=== PATIENT | female | born 1950 | race Caucasian/White ===

== ENCOUNTER 2017-02-03 06:09 | Inpatient (IN) ==
--- NOTE | 2017-02-02 15:19 | Discharge Summary ---
<Alem Shirley E - Last Filed: 02/02/17 15:30> Date of Encounter: 02/02/17 - Discharge Diagnosis (1) Rotator cuff tear arthropathy of right shoulder Priority: Primary Status: Chronic (2) Chronic pain Priority: Secondary Status: Chronic Comments: Plan for patient to continue Noro 10/325mg four times per day as needed for pain. Qualifiers: Chronic pain type: chronic pain syndrome Qualified Code(s): G89.4 - Chronic pain syndrome (3) Chronic kidney disease (CKD) Priority: Secondary Status: Chronic Qualifiers: Chronic kidney disease stage: unspecified stage Qualified Code(s): N18.9 - Chronic kidney disease, unspecified (4) Hypertension Priority: Secondary Status: Chronic Qualifiers: Hypertension type: unspecified Qualified Code(s): I10 - Essential (primary ) hypertension (5) Hyperlipidemia Priority: Secondary Status: Chronic Qualifiers: Hyperlipidemia type: unspecified Qualified Code(s): E78.5 - Hyperlipidemia , unspecified (6) COPD (chronic obstructive pulmonary disease) Priority: Secondary Status: Chronic Qualifiers: COPD type: unspecified COPD Qualified Code(s): J44.9 - Chronic obstructive pulmonary disease, unspecified (7) Smoking Priority: Secondary Status: Chronic (8) GERD (gastroesophageal reflux disease) Priority: Secondary Status: Chronic (9) Hypothyroidism Priority: Secondary Status: Chronic (10) BMI 36.0-36.9,adult Priority: Secondary Status: Chronic - Discharge Medications Home Medications: Albuterol Sulfate [Ventolin Hfa] 18 gm IH Q4H PRN 09/16/16 [History] Atorvastatin Calcium [Lipitor] 80 mg PO DAILY 09/16/16 [History] Bumetanide [Bumex] 1 mg PO DAILY 09/16/16 [History] Cholecalciferol (Vitamin D3) [Vitamin D3] 2,000 unit PO DAILY 09/16/16 [History] Gabapentin [Neurontin] 300 mg PO TID 09/16/16 [History] HYDROcodone/Acet 10/325 mg [[place] 10-325 mg] 1 tab PO QID PRN 09/16/16 [History] Levothyroxine [Synthroid] 88 mcg PO DAILY 09/16/16 [History] Multivitamin [Multi-Day Vitamins] 1 each PO DAILY 09/16/16 [History] Omeprazole [PriLOSEC] 40 mg PO DAILY 09/16/16 [History] Ranitidine HCl [Zantac] 150 mg PO BID 09/16/16 [History] Losartan/HCTZ [Hyzaar 50-12.5 Tablet] 1 each PO DAILY 02/03/17 [History] Allergies/Adverse Reactions: Allergies acetaminophen [From Percocet] Adverse Reaction (Verified 02/03/17 07:36) Itching Oxycodone [From Percocet] Adverse Reaction (Verified 02/03/17 07:36) Itching Primary care physician: Bernie Wooten CNP - Patient Status Disposition: Home, Self-Care Condition: Good - Discharge Instructions Follow Up With: Bernie Wooten CNP [Primary Care Provider] - - Hospital Course Hospital course: Ms. Mendoza is a 66 year old female - Time Spent with Patient Total time spent providing and/or coordinating discharge services: - VTE Documentation of Mechanical Device: Venous foot pump, device <Salazar Butt - Last Filed: 02/04/17 06:37> Date of Encounter: 02/04/17 Time of Encounter: 06:37 - Discharge Diagnosis (1) Rotator cuff tear arthropathy of right shoulder Priority: Primary Status: Chronic (2) Chronic kidney disease (CKD) Priority: Secondary Status: Chronic Qualifiers: Chronic kidney disease stage: unspecified stage Qualified Code(s): N18.9 - Chronic kidney disease, unspecified (3) Hypertension Priority: Secondary Status: Chronic Qualifiers: Hypertension type: unspecified Qualified Code(s): I10 - Essential (primary ) hypertension (4) Hyperlipidemia Priority: Secondary Status: Chronic Qualifiers: Hyperlipidemia type: unspecified Qualified Code(s): E78.5 - Hyperlipidemia , unspecified (5) COPD (chronic obstructive pulmonary disease) Priority: Secondary Status: Chronic Qualifiers: COPD type: unspecified COPD Qualified Code(s): J44.9 - Chronic obstructive pulmonary disease, unspecified (6) Smoking Priority: Secondary Status: Chronic (7) GERD (gastroesophageal reflux disease) Priority: Secondary Status: Chronic Qualifiers: Esophagitis presence: esophagitis presence not specified Qualified Code(s) : K21.9 - Gastro-esophageal reflux disease without esophagitis (8) Hypothyroidism Priority: Secondary Status: Chronic Qualifiers: Hypothyroidism type: unspecified Qualified Code(s): E03.9 - Hypothyroidism , unspecified (9) BMI 36.0-36.9,adult Priority: Secondary Status: Chronic (10) Chronic pain Priority: Secondary Status: Chronic Qualifiers: Chronic pain type: chronic pain syndrome Qualified Code(s): G89.4 - Chronic pain syndrome Primary care physician: Bernie Wooten CNP - Patient Status Overall status at discharge: patient is progressing back to baseline - Hospital Course Hospital course: Ms. Mendoza is a 66 year old female Status post right total shoulder.The patient had an uneventful postoperative course. They received antibiotics and physical therapy and were discharged in stable condition. There will follow-up in the office in 2 weeks. - Time Spent with Patient Total time spent providing and/or coordinating discharge services:
[2017-02-03] MEDS ORDERED: Albuterol 2.5 MG/3 ML NEBULIZER ONE (06:46)
[2017-02-03] MEDS ORDERED: Albuterol 2.5 MG/3 ML NEBULIZER IH ONE (06:49)
[2017-02-03] MEDS ORDERED: CeFAZolin Pre 2,000 MG/100 ML 2,000 MG/100 ML BAG IVPB ONE (06:49)
--- NOTE | 2017-02-03 06:50 | History & Physical Report ---
Date of Encounter: 02/03/17 Time of Encounter: 06:49 24 Hour HP Update - Instructions Instructions: If the History and Physical is less than 30 days old and was completed prior to A.M. admission and or procedure and has NOT been updated on calendar day of procedure please complete this update prior to performing procedure. - Update Patient reports changes in Medical Condition: No Changes in examination, assessment, or condition: No Changes in Medication: No Preop tests/diagnostics Reviewed: Yes Surgery Remains Indicated: Yes Consent for Planned Operative Procedure(s) Verified: Yes - Pre-Operative Checklist Preoperative Checklist Indicated: No Prophylactic Antibiotic Ordered: Yes Is VTE Prophylaxis Indicated?: Yes
[2017-02-03] MEDS ORDERED: *HR* Succinylcholine 200 MG/10 ML VIAL IVP ONE (06:54)
[2017-02-03] MEDS ORDERED: *HR* Midazolam HCl 2 MG/2 ML VIAL ONE (06:54)
[2017-02-03] MEDS ORDERED: *HR* FentaNYL (PF) 100 MCG/2 ML VIAL ONE (06:54)
[2017-02-03] MEDS ORDERED: Lidocaine -MPF 2% 2 ML VIAL ONE (06:54)
[2017-02-03] MEDS ORDERED: *HR* Propofol 200 MG/20 ML VIAL IVP ONE (06:54)
[2017-02-03] MEDS ORDERED: Ondansetron 4 MG/2 ML VIAL ONE (06:54)
[2017-02-03] MEDS ORDERED: Ringers Solution, Lactated 1,000 ML IVC SCH ×2 (07:00→09:31)
--- NOTE | 2017-02-03 07:06 | Anesthesia Evaluation PreOp ---
Date of Encounter: 02/03/17 Time of Encounter: 07:03 - Past History Planned Operation: Right Total Shoulder Cardiac History: HTN, Hyperlipidemia Pulmonary History: Smoker (52 years), COPD TIG WELDER History: Denies Any Significant HX Other Medical History: Renal (CKD stage 3), Thyroid, GERD Anesthesia History: No Prior Anesthetic Complications, Past Anesthesia Alcohol Use: occasionally Drug use: none Medications and Allergies Albuterol Sulfate [Ventolin Hfa] 18 gm IH Q4H PRN 09/16/16 [History] Atorvastatin Calcium [Lipitor] 80 mg PO DAILY 09/16/16 [History] Bumetanide [Bumex] 1 mg PO DAILY 09/16/16 [History] Cholecalciferol (Vitamin D3) [Vitamin D] 2,000 unit PO DAILY 09/16/16 [History] Gabapentin [Neurontin] 300 mg PO TID 09/16/16 [History] HYDROcodone/Acet 10/325 mg [[place] 10-325 mg] 1 tab PO QID PRN 09/16/16 [History] Levothyroxine [Synthroid] 88 mcg PO DAILY 09/16/16 [History] Lisinopril/Hydrochlorothiazide [Zestoretic 10-12.5 mg Tablet] 1 each PO DAILY [History] Multivitamin [Multi-Day Vitamins] 1 each PO DAILY 09/16/16 [History] Omeprazole [PriLOSEC] 40 mg PO DAILY 09/16/16 [History] Promethazine/Dextromethorphan [Promethazine-Dm Syrup] 5 ml PO Q4-6H PRN #120 syrup 09/16/16 [Rx] Ranitidine HCl [Zantac] 150 mg PO BID 09/16/16 [History] predniSONE [PredniSONE] 20 mg PO DAILY #15 tablet 09/16/16 [Rx] Allergies acetaminophen [From Percocet] Allergy (Verified 09/16/16 14:21) Itching Oxycodone [From Percocet] Allergy (Verified 09/16/16 14:21) Itching - Meds/Allergy Pre-op Review Medications Reviewed: Yes Allergies Reviewed: Yes Beta Blockers on Current Med List: No Anesthesia Results - Labs Laboratory Tests 01/24/17 01/31/17 01/31/17 14:10 13:28 13:28 WBC 8.2 Hgb 13.0 Hct 38.0 Plt Count 319 PT 10.6 INR 1.0 APTT 28.4 Sodium 140 Potassium 3.3 L BUN 12 Creatinine 1.17 H - Imaging EKG: report reviewed (09/11/2016 SR, leftward axis, IRBBB) Additional studies: 09/30/2016 Echo LVEF 65% moderate LV diastolic dysfunction no significant valvular dysfunction unable to estimate RVSP due to lack of adequate TR jet 10/19/2012 Stress Impression: * Perfusion imaging was negative for ischemia or infarct. * Pharmacologic ECG was negative for ischemia at the level of heart rate achieved. * Patient had chest pain with stress. This is of equivocal clinical signficance during a pharmacologic stress. * Normal hemodynamic response. * No arrhythmias noted with stress. * Gated EF >70%. Anesthesia Exam O2 Sat Height 1.65 m Height 1.65 m Height 1.65 m Weight 95.254 kg Weight 95.254 kg Weight 95.254 kg O2 Sat by Pulse Oximetry 93 Vital Signs Temp Pulse Resp BP Pulse Ox 98.1 F 88 18 145/69 93 02/03/17 06:29 02/03/17 06:29 02/03/17 06:29 02/03/17 06:29 02/03/17 06:29 Height: 5'5'' Weight: 210 lbs NPO (# of Hours): 8 Pain Scale: 8 (right shoulder) Pain Scale Used: Numeric (1 - 10) - HEENT Pupil (Motor): EOMI Mallampati: II Teeth: Edentulous Oral Opening: Greater than 3 - TIG WELDER LOC: Oriented TIG WELDER Motor: Normal RUE, Normal LUE, Normal RLE, Normal LLE, Normal Face TIG WELDER Sensory: Normal: RUE, LUE, RLE, LLE, Face - Cardiac Rhythm: Regular Murmur: None - Pulmonary Breath Sounds: bilateral Clear Respiratory Effort: Symmetrical Anesthesia Assess/Plan ASA Score: 3 Modified Lavon Scale for Level of Consciousness: Cooperative, oriented, and tranquil Anesthetic Plan: General, Regional Monitoring Plan: Standard Monitors Recovery Plan: PACU
[2017-02-03] MEDS ORDERED: *HR* HYDROmorphone (PF) 1 MG/ML SYRINGE IVP PRN ×2 (07:08→09:31)
[2017-02-03] MEDS ORDERED: Ondansetron 4 MG/2 ML VIAL IVP ONE (07:08)
[2017-02-03] MEDS ORDERED: *HR* Meperidine 25 MG/ML SYRINGE IVP PRN (07:08)
[2017-02-03] MEDS ORDERED: ROPIVACAINE HCL/PF 0.5% 30 ML VIAL ONE (07:11)
[2017-02-03] MEDS ORDERED: Bupivacaine/Clonidine Syringe 1 EACH SYRINGE ONE (07:12)
--- NOTE | 2017-02-03 07:51 | Anesthesia Procedures ---
Date of Encounter: 02/03/17 Time of Encounter: 07:30 Procedures: Anesthesia - Nerve Block Procedure Date: 02/03/17 Time: 07:30 Allergies/Adv Reactions: none Pre-op Diagnosis: Right shoulder arthritis Surgical Procedure: Right total shoulder Checklist: Correct Patient Identifier, Correct procedure, History checked Correct side: Right Blood Thinner: No Monitor Applied: EKG, BP, Pulse Oximetry Supplemental Oxygen via Nasal Cannula (L/min): 2 Sedation: Versed (mg): 2 Sedation: Fentanyl (mcg): 100 Indication: Post Op Analgesia Block Type: Supraclavicular, Other (Biceps) Catheter placed: No Sterile Technique: Yes Ultrasound used: Yes Anatomy identified: Yes Visual spread of Local: Yes Neuro Stimulation: No Blood on Needle Aspiration: No Smooth Injection of Local: Yes Pain with Injection of Local: No Prep: Chlorhexadine Needle: 22 x 50 mm Stimuplex Local: 0.25% Bupivicaine w/Clonidine 20 mcg/cc (10ml), Ropivacaine (30ml 0.5%, 8mg Decadron) Number of Attempts: 1 Complications: None/effective block Vitals: Vital Signs/O2 Sat/Glucose, Most Recent Temp Pulse Resp BP Pulse Ox 98.1 F 79 16 149/77 94 02/03/17 06:29 02/03/17 07:31 02/03/17 07:31 02/03/17 07:31 02/03/17 07:31
[2017-02-03] MEDS ORDERED: EPHEDrine 50 MG/ML VIAL ONE (08:03)
[2017-02-03] MEDS ORDERED: Dexamethasone 4 MG/ML VIAL ONE (08:17)
--- NOTE | 2017-02-03 08:33 | Orthopedic Operative Note ---
Date of procedure: 02/03/17 Pre-op diagnosis: Right shoulder cuff tear arthropathy Post-op diagnosis: same Procedure: Procedure: Right Total Shoulder Replacment Reverse, Estimated blood loss: 100 cc Hardware: Metal and polyethylene replacement: Arthrex all glenoid baseplate, 2 4.5 screws. 1 6.5 screw, 36+4 glenosphere, 7 humeral stem, poly insert 6 Exam Under anesthesia: Full motion and no instability Procedural Notes: Irreparable tear supraspinatus tendon. Operative procedure: The patient was brought to the operating room and placed on the operating room table. After general anesthesia was administered the operative shoulder was examined. Findings were noted. The patient was placed in the modified beachchair position. All pressure points were padded appropriately. And the head was stabilized in the neutral position. The operative extremity was prepped and draped in the sterile surgical fashion. The patient received IV antibiotics prior to skin incision. A standard deltopectoral approach was made to the operative shoulder. Incision was made to the skin and subcutaneous tissue,hemo stasis was obtained with Bovie cautery. Using careful blunt dissection the cephalic vein was identified and mobilized medially. The deltopectoral interval was developed and the clavipectoral fascia was incised. The subscap was released off the lesser tuberosity and tagged with #2 FiberWire suture subscapular irreparable. The humerus was dislocated patient noted to have irreparable tear supraspinatus tendon, and the humeral cut was made along the anatomic neck. Anterior and posterior Bankart retractors were placed to expose the glenoid. The glenoid guide was seated and the centering hole was made. It was reamed with the appropriate reamer. The small baseplate was seated and secured with (2) 4.5 screws and one 6.5 screw. The baseplate was irrigated and dried and the early 6+4 Glenosphere was seated and secured with the [place] taper. The [place] taper was tested and found to be secure the humerus was redislocated and prepared with the diaphyseal reamers, followed by a broaching process up to the appropriate size 7 in the patient's anatomic version. The metaphyseal reamer was then utilized. Trial reduction found the shoulder to be relocatable. Trial components were removed. The appropriate 7 stem was impacted in place in the patient's anatomic version. Trial reduction found the shoulder to be relocatable and stable with the appropriate 6. Trial component was removed and the real implant was seated and secured the shoulder was reduced. The shoulder had excellent motion and excellent stability and no evidence of dislocation. The deep tissue was irrigated with pulse irrigation. The shoulder was closed by the PA. The deltopectoral interval was closed with a running #1 PDS suture, subcutaneous tissue was irrigated and closed with 0 PDS suture, the skin was closed with Dermabond. The patient was placed in a sterile dressing, abduction brace and extubated. The patient was then transferred to the recovery room in stable condition. Anesthesia: DAYNA Surgeon: Salazar Butt Maintainer Plant: Ani Berrios Condition: stable Disposition: PACU
--- NOTE | 2017-02-03 09:18 | Anesthesia Evaluation Post Op ---
Date of Encounter: 02/03/17 Time of Encounter: 09:18 - Vital Signs Vital Signs: Vital Signs/O2 Sat, Most Current Temp Pulse Resp BP Pulse Ox 97.5 F L 83 16 137/83 94 02/03/17 08:49 02/03/17 09:09 02/03/17 09:09 02/03/17 09:09 02/03/17 09:09 - Lungs Lungs: Clear Ascult./Percussion - Airway Airway: Non-obstructed - Cardiovascular Regular Rate - Mental Status Mental Status: Alert & Oriented, Answers Appropriately - Pain Pain Scale: 0 Pain Scale used: Numeric (1 - 10) - Nausea Vomiting Nausea Vomiting: Not Present - Hydration Hydration: NPO, Has not voided - Discharge PostOp Status: Transfer Patient to floor
[2017-02-03] MEDS ORDERED: Sennosides 8.6 MG TABLET PO PRN (09:31)
[2017-02-03] MEDS ORDERED: MOM Conc 10 ML UD.LIQ PO PRN (09:31)
[2017-02-03] MEDS ORDERED: traMADol 50 MG TABLET PO PRN (09:31)
[2017-02-03] MEDS ORDERED: Naloxone 0.4 MG/ML INJ IVP PRN (09:31)
[2017-02-03] MEDS ORDERED: Temazepam 15 MG CAPSULE PO PRN (09:31)
[2017-02-03] MEDS ORDERED: Ondansetron 4 MG/2 ML VIAL IVP PRN (09:31)
[2017-02-03 10:03] LABS: Hematocrit 35.5 % (35.3-44.9); Hemoglobin 11.8 g/dL (11.5-15.4)
[2017-02-03] MEDS: Bumetanide 1 MG TABLET PO SCH (13:59)
[2017-02-03] MEDS: Losartan/HCTZ 50-12.5 TABLET PO SCH (14:00)
[2017-02-03] MEDS: Gabapentin 300 MG CAPSULE PO SCH ×3 (14:00→20:39)
[2017-02-03] MEDS: Cholecalciferol (D-3) 1,000 UNIT TABLET PO SCH (14:02)
[2017-02-03] MEDS: Multivit/Ca/Min/Fe/FA 1 TAB TABLET PO SCH (14:02)
[2017-02-03] MEDS: ceFAZolin 2,000 MG in D5% in Water 100 ML IVPB SCH ×2 (15:10→23:21)
[2017-02-03] MEDS ORDERED: *HR* Enoxaparin 30 MG/0.3 ML SYRINGE SQ SCH (18:00)
[2017-02-03] MEDS: *HR* Enoxaparin 30 MG/0.3 ML SYRINGE SQ SCH (18:25)
[2017-02-03] MEDS: Famotidine 20 MG TABLET PO SCH (18:26)
[2017-02-03] MEDS: *HR* HYDROcodone/Acet 5/325 mg TABLET PO PRN (20:39)
[2017-02-04 05:05] LABS: Hematocrit 36.2 % (35.3-44.9); Hemoglobin 11.8 g/dL (11.5-15.4)
[2017-02-04] MEDS: *HR* Enoxaparin 30 MG/0.3 ML SYRINGE SQ SCH (05:06)
--- NOTE | 2017-02-04 06:38 | Orthopedics Progress Note ---
Date of Encounter: 02/04/17 Time of Encounter: 06:38 - Assessment and Plan (1) Rotator cuff tear arthropathy of right shoulder Current Visit: Yes Status: Chronic (2) Chronic kidney disease (CKD) Current Visit: Yes Status: Chronic Qualifiers: Chronic kidney disease stage: unspecified stage Qualified Code(s): N18.9 - Chronic kidney disease, unspecified (3) Hypertension Current Visit: Yes Status: Chronic Qualifiers: Hypertension type: unspecified Qualified Code(s): I10 - Essential (primary ) hypertension (4) Hyperlipidemia Current Visit: Yes Status: Chronic Qualifiers: Hyperlipidemia type: unspecified Qualified Code(s): E78.5 - Hyperlipidemia , unspecified (5) COPD (chronic obstructive pulmonary disease) Current Visit: Yes Status: Chronic Qualifiers: COPD type: unspecified COPD Qualified Code(s): J44.9 - Chronic obstructive pulmonary disease, unspecified (6) Smoking Current Visit: Yes Status: Chronic (7) GERD (gastroesophageal reflux disease) Current Visit: Yes Status: Chronic Qualifiers: Esophagitis presence: esophagitis presence not specified Qualified Code(s) : K21.9 - Gastro-esophageal reflux disease without esophagitis (8) Hypothyroidism Current Visit: Yes Status: Chronic Qualifiers: Hypothyroidism type: unspecified Qualified Code(s): E03.9 - Hypothyroidism , unspecified (9) BMI 36.0-36.9,adult Current Visit: Yes Status: Chronic (10) Chronic pain Current Visit: Yes Status: Chronic Qualifiers: Chronic pain type: chronic pain syndrome Qualified Code(s): G89.4 - Chronic pain syndrome Subjective Interval history: Patient was seen this morning doing well without complaints. Afebrile vital signs stable. Operative extremity: Neurovascularly intact Dressing clean dry and intact Calves nontender Assessment and plan: Continue with postoperative care Hematocrit 36 discharged home today Objective Vital signs: Vital Signs Temp Pulse Resp BP Pulse Ox 02/04/17 03:57 98.2 F 80 15 120/74 89 02/04/17 00:37 98.1 F 88 15 117/70 90 02/03/17 19:18 98.5 F 76 15 154/74 95 02/03/17 16:00 98.0 F 96 18 124/58 96 02/03/17 12:28 97.7 F 89 18 99/43 93 02/03/17 12:04 97.6 F 91 16 111/48 90 02/03/17 10:50 98.1 F 86 18 120/73 95 02/03/17 10:47 98.1 F 86 18 120/73 95 02/03/17 10:00 97.9 F 85 16 100/65 93 02/03/17 09:33 97.7 F 83 16 99/65 93 02/03/17 09:19 97.7 F 82 16 119/64 93 02/03/17 09:09 83 16 137/83 94 02/03/17 08:59 84 16 129/53 96 02/03/17 08:49 97.5 F L 82 20 125/55 95 02/03/17 07:31 79 16 149/77 94 Intake and Output 02/03/17 02/03/17 02/04/17 15:59 23:59 07:59 Intake Total 220 / 220 490 / 490 290 / 290 Output Total 100 / 100 475 / 475 Balance 120 / 120 490 / 490 -185 / -185 Intake: IV Fluids 100 / 100 200 / 200 Ancef Premix 2,000 MG/100 100 / 100 ML 2,000 mg In 100 ml @ 200 mls/hr IVPB PREOP ONE Rx#:[id number] Ancef 2,000 MG In 200 / 200 Dextrose 5% 100 ML @ 200 mls/hr IVPB Q8HR DANA Rx#: [id number] Oral 120 / 120 290 / 290 290 / 290 Output: Urine 0 / 0 475 / 475 Estimated Blood Loss 100 / 100 Other: Meal Dinner Percent of Meal Consumed 50% # Voids 1 1 Weight 108 kg Patient Weight 02/04/17 23:59 Weight 108 kg - Labs CBC & BMP: 02/04/17 04:51 - VTE Documentation of Mechanical Device: Venous foot pump, device Consult Discharge Plan - Plan Referrals: Bernie Wooten, L[employer] SUPERVISOR [Primary Care Provider] -
[2017-02-04] MEDS: *HR* HYDROcodone/Acet 5/325 mg TABLET PO PRN (07:58)
[2017-02-04] MEDS: Gabapentin 300 MG CAPSULE PO SCH (08:00)
[2017-02-04] MEDS: Cholecalciferol (D-3) 1,000 UNIT TABLET PO SCH (08:00)
[2017-02-04] MEDS: Bumetanide 1 MG TABLET PO SCH (08:00)
[2017-02-04] MEDS: Multivit/Ca/Min/Fe/FA 1 TAB TABLET PO SCH (08:01)
[2017-02-04] MEDS: Losartan/HCTZ 50-12.5 TABLET PO SCH (08:01)
[2017-02-04] MEDS: Famotidine 20 MG TABLET PO SCH (08:01)
[2017-02-04 11:02] VITALS: BP 116/54
[2017-02-05] MEDS ORDERED: Famotidine 20 MG TABLET PO SCH (09:00)
== END 2017-02-04 13:05 | disposition home or self-care (01) | DRG 483 ==
LOC: SAMDAY 06:09 → 3NENU 09:30
PROVIDERS: ADMIT Orthopaedic Surgery; ATTEND Orthopaedic Surgery

== ENCOUNTER 2020-02-25 06:14 | Inpatient (IN) ==
[2020-02-25] MEDS ORDERED: CeFAZolin Syr 2,000MG/20 ML 2,000 MG/20 ML SYRINGE IVPB ONE (06:31)
[2020-02-25] MEDS ORDERED: Ringers Solution, Lactated 1,000 ML IVC SCH ×2 (06:45→10:57)
[2020-02-25] MEDS ORDERED: *HR* Propofol 200 MG/20 ML VIAL IVP ONE (07:06)
[2020-02-25] MEDS ORDERED: *HR* FentaNYL (PF) 100 MCG/2 ML VIAL ONE (07:06)
[2020-02-25] MEDS ORDERED: *HR* Midazolam HCl 2 MG/2 ML VIAL ONE (07:06)
[2020-02-25] MEDS ORDERED: Ropivacaine/PF 0.5% 30 ML VIAL ONE (07:07)
[2020-02-25] MEDS ORDERED: ROPIVACAINE/PF/NS 0.25% 1 EACH SYRINGE INTRAART ONE (07:07)
[2020-02-25] MEDS ORDERED: Lidocaine -MPF 2% 2 ML VIAL ONE (07:09)
[2020-02-25] MEDS ORDERED: Acetaminophen IV 1,000 MG/100 ML INFUS..BTL IVPB ONE (07:09)
[2020-02-25] MEDS ORDERED: Ondansetron 4 MG/2 ML VIAL IVP ONE (07:09)
[2020-02-25] MEDS ORDERED: *HR* Succinylcholine 200 MG/10 ML VIAL IVP ONE (07:09)
[2020-02-25] MEDS ORDERED: *HR* HYDROmorphone PF 0.5 MG/0.5 ML SYRINGE IVP PRN (07:09)
[2020-02-25] MEDS ORDERED: Dexamethasone 4 MG/ML VIAL ONE (07:09)
[2020-02-25] MEDS ORDERED: *HR* Meperidine 25 MG/ML SYRINGE IVP PRN (07:09)
[2020-02-25] MEDS ORDERED: Lidocaine HCL 4 ML Topical Solution (Laryng-O-Jet Kit Sterile Pak) TP ONE (07:09)
[2020-02-25] MEDS ORDERED: Vancomycin 1,000 MG VIAL ONE (07:11)
[2020-02-25] MEDS ORDERED: Ethanol\\Acetic Acid\\Na Ace\\Ben 1,000 ML IRRIG.SOLN IR ONE (07:11)
[2020-02-25] MEDS ORDERED: *HR* PHENYLEPHRINE 1,000 MCG/10 ML SYRINGE IVP ONE ×2 (08:14→08:56)
[2020-02-25 10:00] LABS: Hematocrit 38.6 % (35.3-44.9); Hemoglobin 12.4 g/dL (11.5-15.4)
[2020-02-25] MEDS ORDERED: MOM Conc 10 ML UD.LIQ PO PRN (10:57)
[2020-02-25] MEDS ORDERED: Ondansetron 4 MG/2 ML VIAL IVP PRN (10:57)
[2020-02-25] MEDS ORDERED: D5% in Water 1,000 ML IVC PRN (10:57)
[2020-02-25] MEDS ORDERED: lisinopriL 5 MG TABLET PO SCH (10:57)
[2020-02-25] MEDS ORDERED: *HR* Dextrose 50 % in Water (Vial) 50 ML VIAL IVP PRN (10:57)
[2020-02-25] MEDS ORDERED: Multivit/Ca/Min/Fe/FA 1 TAB TABLET PO SCH (10:57)
[2020-02-25] MEDS ORDERED: *HR* HYDROcodone/Acet 5/325 mg TABLET PO PRN (10:57)
[2020-02-25] MEDS ORDERED: Bumetanide 1 MG TABLET PO SCH (10:57)
[2020-02-25] MEDS ORDERED: Naloxone 0.4 MG/ML INJ IVP PRN (10:57)
[2020-02-25] MEDS ORDERED: Dextrose Gel 15 GM/37.5 ML TUBE PO PRN ×2 (10:57)
[2020-02-25] MEDS ORDERED: Cholecalciferol (D-3) 1,000 UNIT (25MCG) TABLET PO SCH (10:57)
[2020-02-25] MEDS ORDERED: Sennosides 8.6 MG TABLET PO PRN (10:57)
[2020-02-25] MEDS ORDERED: cilostazoL 100 MG TABLET PO SCH (10:57)
[2020-02-25] MEDS ORDERED: *HR* HYDROcodone/Acet 10/325 mg TABLET PO PRN ×2 (10:57)
[2020-02-25] MEDS: Gabapentin 300 MG CAPSULE PO SCH ×2 (11:14→15:48)
[2020-02-25] MEDS: Insulin LISPRO 300 UNITS/3 ML VIAL SQ SCH (11:45)
[2020-02-25] MEDS ORDERED: CeFAZolin 2 GM/120 ML BAG IVPB SCH (16:00)
[2020-02-25] MEDS ORDERED: *HR* Enoxaparin 30 MG/0.3 ML SYRINGE SQ SCH ×2 (18:00)
[2020-02-25 19:56] VITALS: BP 153/78
[2020-02-25] MEDS ORDERED: Insulin LISPRO 300 UNITS/3 ML VIAL SQ SCH (21:00)
== END 2020-02-25 19:01 | disposition home or self-care (01) | DRG 483 ==
LOC: SAMDAY 06:14 → 3NENU 10:57
PROVIDERS: ADMIT Orthopaedic Surgery; ATTEND Orthopaedic Surgery